=== PATIENT | male | born 1965 | race Caucasian/White ===

== ENCOUNTER 2020-07-04 13:21 | Emergency (ER) | payer OTHER, SELFPAY ==
[2020-07-04 13:32] VITALS: BP 142/88; PULSE 62; RESP 16; TEMP 36.6
--- NOTE | 2020-07-04 13:53 | ED.GENADULT ---
HPI - General Adult General Chief complaint: Extremity Problem,Nontraumatic Stated complaint: lt big toe pain Time Seen by Provider: 07/04/20 13:53 Source: patient and RN notes reviewed Mode of arrival: ambulatory Limitations: no limitations History of Present Illness HPI narrative: 54 year old male who presents to [facility] care with 2 week duration of rash type of area to the dorsal aspect of his left great toe near the base of toe nail. Patient states that he has been applying Neosporin ointment to area with no improvement, denies any pain or itching to the area. Patient has 0.5cm circular type of lesion to dorsal left great toe which is shrimp header in color than surrounding skin, no pustular formation, roughened appearance with no drainage or weeping denies any other similar lesions. Patient denies any use of new soaps, lotions, laundry detergents,medications or foods. MD complaint: rash area Onset (ago): week(s) (2) Location: left and lower extremity (great toe) Radiation: non-radiation Relieving factors: none Exacerbating factors: none Associated symptoms: denies other symptoms Treatments prior to arrival: other (Neosporin ointment) Related Data Allergies Allergy/AdvReac Type Severity Reaction Status Date / Time amoxicillin Allergy Unknown Hives Verified 05/17/20 14:16 erythromycin base Allergy Unknown Diarrhea Verified 05/17/20 14:16 ZPAK AdvReac Mild DIARRHEA Uncoded 05/17/20 14:16 Review of Systems Review of Systems: Narrative: CONSTITUTIONAL: Denies fever, chills, or sweats. EYES: Denies visual changes, redness, or discharge. ENT: Denies rhinorrhea, congestion, sore throat, or otalgia. CARDIOVASCULAR: Denies chest pain, palpitations, or edema. RESPIRATORY: Denies cough or dyspnea. GASTROINTESTINAL: Denies abdominal pain, nausea, vomiting, or diarrhea. GENITOURINARY: Denies dysuria or hematuria. SKIN:Positive for lesion to dorsal area of left great toe near base of nail. MUSCULOSKELETAL: Denies back pain, joint pain, or myalgia. NEUROLOGIC: Denies headache, numbness, or weakness. PSYCHIATRIC: Denies anxiety or depression. All systems reviewed & are unremarkable except as noted in HPI and below PMFSH Past Medical History Medical History Benign hypertension Hypertension Surgical History Surgical History History of hernia repair History of removal of skin mole Family History Family History Father Diabetes mellitus Hypertension Family history of renal failure Mother Depression Social History Social History Smoking status: Never smoker Second hand tobacco smoke exposure: No Alcohol intake: current Drinks per week: 3 Substance use: never Substance use type: does not use Gender identity (if verbalized by the patient): Male Comments At time of signature, agree with nursing past medical, surgical, social and family history. There is no relevant family history pertinent to the presenting complaint Exam Narrative: Exam Narrative: GENERAL: Well-appearing, well-nourished, and in no acute distress. HEAD: Normocephalic, atraumatic. EYES: PERRLA and EOMI. ENT: Nares clear, no rhinorrhea or epistaxis. Mucous membranes moist. NECK: Supple.no lymphadenopathy CHEST: Clear to auscultation. No respiratory distress.SAO2 100% on room air. HEART: Regular rate and rhythm. No murmur heard. Normal peripheral pulses. ABDOMEN: Soft, nontender, nondistended, normal active bowel sounds. EXTREMITIES: Normal range of motion. No edema. SKIN: Warm, dry,0.5cm diameter of discolored area to dorsal aspect of left great toe near base of nail, color is shrimp header than skin tone circular pattern with no drainage or itching. Skin has rough pattern on lesion, no plaque formation noted. NEURO: No focal deficits. Alert and orie
== END 2020-07-04 14:16 | disposition home or self-care (01) ==
PROVIDERS: Emergency Provider Registered Nurse; PCP Physician Assistant
DX: B36.9 Superficial mycosis, unspecified (principal); I10 Essential (primary) hypertension
CPT/HCPCS: 99213; G0463